=== PATIENT | male | born 1940 | race Caucasian/White ===

== ENCOUNTER 2023-09-28 13:06 | Day surgery (SDC) | payer MEDICARE ==
[2023-09-28] MEDS ORDERED: Depo-Medrol 40 MG/ML IM ONE (13:07)
[2023-09-28] MEDS ORDERED: Sodium Chloride 0.9(Preservative Free) 10 ML IJ ONE (13:07)
[2023-09-28] MEDS ORDERED: LIDOCAINE HCL 1% 50 MG/5 ML VL PF IJ ONE (13:07)
[2023-09-28] MEDS ORDERED: Lactated Ringers 1,000 ML IV ONE (15:03)
--- NOTE | 2023-09-28 16:26 | XRAY ---
Indication: Lumbar RITA. Intraoperative fluoroscopy provided for 13 seconds. 3 digital spot images submitted for interpretation demonstrates posterior needle tip projecting posterior to last lumbar segment. Small amount of contrast injected for needle tip placement. Correlate with intraoperative findings/report.
--- NOTE | 2023-09-28 16:34 | XRAY ---
13 seconds of fluoroscopy was used in surgery for a lumbar RITA.
== END 2023-09-28 15:05 | disposition home or self-care (01) ==
LOC: SDC-PAIN 13:06
PROVIDERS: ATTEND Psychiatry & Neurology Pain Medicine
DX: M54.16 Radiculopathy, lumbar region (principal); E11.9 Type 2 diabetes mellitus without complications
CPT/HCPCS: 62323; 72100; 77003; 82947; J2001; Q9966

== ENCOUNTER 2023-11-09 08:28 | Day surgery (SDC) | payer MEDICARE ==
[2023-11-09] MEDS ORDERED: Xylocaine-Mpf 2% 5 Ml Vial IJ ONE (08:29)
[2023-11-09] MEDS ORDERED: Depo-Medrol 40 MG/ML IM ONE (08:29)
[2023-11-09] MEDS ORDERED: DIPRIVAN 200 MG/20 ML IV ONE (09:51)
[2023-11-09] MEDS ORDERED: Lactated Ringers 1,000 ML IV ONE (09:55)
--- NOTE | 2023-11-09 11:57 | XRAY ---
Indication: Bilateral L4-S1 MBB. Intraoperative fluoroscopy provided for 14 seconds. Single digital spot image submitted for interpretation demonstrates posterior needle tips projecting over the expected left and right L4-S1 nerve roots. Correlate with intraoperative findings/report.
--- NOTE | 2023-11-09 13:08 | XRAY ---
14 seconds of fluoroscopy was used in surgery for a bilateral L4-S1 MBB.
== END 2023-11-09 10:20 | disposition home or self-care (01) ==
LOC: SDC-PAIN 08:28
PROVIDERS: ATTEND Psychiatry & Neurology Pain Medicine
DX: M47.816 Spondylosis without myelopathy or radiculopathy, lumbar region (principal); E11.9 Type 2 diabetes mellitus without complications
CPT/HCPCS: 64493; 64494; 72020; 77002; 82947; J2704

== ENCOUNTER 2023-12-07 10:14 | Day surgery (SDC) | payer MEDICARE ==
[2023-12-07] MEDS ORDERED: BUPIVACAINE 0.5% VIAL IJ ONE (10:15)
[2023-12-07] MEDS ORDERED: Depo-Medrol 40 MG/ML IM ONE (10:15)
[2023-12-07] MEDS ORDERED: DIPRIVAN 200 MG/20 ML IV ONE (12:14)
--- NOTE | 2023-12-07 13:32 | XRAY ---
Indication: Bilateral L4-S1 MBB. Intraoperative fluoroscopy provided for 17 seconds. Single digital spot image submitted for interpretation demonstrates posterior needle tips projecting over the expected left and right L4-S1 nerve roots. Correlate with intraoperative findings/report.
--- NOTE | 2023-12-07 14:12 | XRAY ---
17 seconds of fluoroscopy was used in surgery for a bilateral L4-S1 MBB.
== END 2023-12-07 12:14 | disposition home or self-care (01) ==
LOC: SDC-PAIN 10:14
PROVIDERS: ATTEND Psychiatry & Neurology Pain Medicine
DX: M47.816 Spondylosis without myelopathy or radiculopathy, lumbar region (principal); E11.9 Type 2 diabetes mellitus without complications
CPT/HCPCS: 64493; 64494; 72020; 77002; 82947; J2704

== ENCOUNTER 2024-04-26 07:21 | Day surgery (SDC) | payer MEDICARE ==
[2024-04-26] MEDS ORDERED: LIDOCAINE HCL 1% 50 MG/5 ML VL IJ ONE (07:22)
[2024-04-26] MEDS ORDERED: methylPREDNISolone acetate IM ONE (07:22)
[2024-04-26] MEDS ORDERED: BUPIVACAINE 0.5% VIAL IJ ONE (07:22)
[2024-04-26] MEDS ORDERED: Lactated Ringers 500 ML IV ONE (07:51)
[2024-04-26] MEDS ORDERED: propofoL IV ONE (09:10)
--- NOTE | 2024-04-26 11:07 | XRAY ---
Indication: Right L4-S1 RFA. Intraoperative fluoroscopy provided for 25 seconds. 3 digital spot image submitted for interpretation demonstrates posterior needle tips projecting over expected right L4-S1 nerve roots. Correlate with intraoperative findings/report.
--- NOTE | 2024-04-26 11:09 | XRAY ---
25 seconds of fluoroscopy was used in surgery for a right L4-S1 RFA.
== END 2024-04-26 09:46 | disposition home or self-care (01) ==
LOC: SDC-PAIN 07:21
PROVIDERS: ATTEND Psychiatry & Neurology Pain Medicine
DX: M47.816 Spondylosis without myelopathy or radiculopathy, lumbar region (principal); E11.9 Type 2 diabetes mellitus without complications
CPT/HCPCS: 64635; 64636; 72100; 77002; 82947; 99100; J1010; J2704

== ENCOUNTER 2024-05-02 07:23 | Day surgery (SDC) | payer MEDICARE ==
[2024-05-02] MEDS ORDERED: Depo-Medrol 40 MG/ML IM ONE (07:24)
[2024-05-02] MEDS ORDERED: LIDOCAINE HCL 1% AMPUL 5 ML IJ ONE (07:24)
[2024-05-02] MEDS ORDERED: BUPIVACAINE 0.5% VIAL IJ ONE (07:24)
[2024-05-02] MEDS ORDERED: Lactated Ringers 500 ML IV ONE (07:49)
[2024-05-02] MEDS ORDERED: propofoL IV ONE (09:00)
--- NOTE | 2024-05-02 12:34 | XRAY ---
Indication: Left L4-S1 RFA. Intraoperative fluoroscopy provided for 19 seconds. 5 digital spot images submitted for interpretation demonstrates posterior needle tips projecting over expected left L4-S1 nerve roots. Correlate with intraoperative findings/report.
--- NOTE | 2024-05-02 12:55 | XRAY ---
19 seconds of fluoroscopy was used in surgery for a left L4-S1 RFA.
== END 2024-05-02 09:34 | disposition home or self-care (01) ==
LOC: SDC-PAIN 07:23
PROVIDERS: ATTEND Psychiatry & Neurology Pain Medicine
DX: M47.817 Spondylosis without myelopathy or radiculopathy, lumbosacral region (principal); E11.9 Type 2 diabetes mellitus without complications
CPT/HCPCS: 64635; 64636; 72100; 77002; 82947; 99100; J2704

== ENCOUNTER 2024-11-14 09:12 | Day surgery (SDC) | payer MEDICARE ==
[2024-11-14] MEDS ORDERED: methylPREDNISolone acetate IM ONE (09:13)
[2024-11-14] MEDS ORDERED: LIDOCAINE HCL 1% 50 MG/5 ML VL IJ ONE (09:13)
[2024-11-14] MEDS ORDERED: Sodium Chloride 0.9(Preservative Free) 10 ML IJ ONE (09:13)
[2024-11-14] MEDS ORDERED: propofoL IV ONE (11:17)
--- NOTE | 2024-11-14 13:05 | XRAY ---
Indication: Lumbar RITA. Intraoperative fluoroscopy provided for 14 seconds. 2 digital spot image submitted for interpretation demonstrates posterior needle tip projecting posterior to lumbosacral junction. Small amount of contrast injected for needle tip placement. Correlate with intraoperative findings/report.
--- NOTE | 2024-11-14 13:07 | XRAY ---
14 seconds of fluoroscopy were used in surgery for a lumbar RITA.
[2024-11-14] MEDS ORDERED: Lactated Ringers 1,000 ML IV ONE (15:16)
== END 2024-11-14 11:50 | disposition home or self-care (01) ==
LOC: SDC-PAIN 09:12
PROVIDERS: ATTEND Psychiatry & Neurology Pain Medicine
DX: M54.16 Radiculopathy, lumbar region (principal); E11.9 Type 2 diabetes mellitus without complications